=== PATIENT | female | born 1985 | race Caucasian/White ===

== ENCOUNTER 2018-02-11 12:12 | Emergency (ER) | payer BC | END 2018-02-11 16:12 | disposition home or self-care (01) | LOC: UCCORT 12:12 | DX: S81.011A Laceration without foreign body, right knee, initial encounter (principal); W19.XXXA Unspecified fall, initial encounter; Y93.9 Activity, unspecified; Y92.9 Unspecified place or not applicable | CPT/HCPCS: 12032; 99212; G0463 ==